=== PATIENT | female | born 1955 | race Two or more races ===

== ENCOUNTER 2016-11-01 22:20 | Emergency (ER) | payer BC, OTHER ==
[2016-11-01 23:02] VITALS: TEMP 98.5; BMI 37.8
--- NOTE | 2016-11-02 00:32 | PDOC ---
History of Present Illness - History of Present Illness Initial Comments: 11/02/16 00:49 The patient is a 61 year old female with a past medical hx of HTN, diabetes, kidney stones who presents to the ED for evaluation of high blood pressure since today. The patient notes she has been more stressed than usual and has not been watching her diet. She reports she can feel when her blood pressure is high and took her pressure at home. She states she feels lightheaded, hot, flushed, nauseous, and short of breath. She also states she had diarrhea and vomiting episodes today, but notes this may be secondary to the food she ate. She reports she has not taken her blood pressure medication in 4 days. The patient denies chest pain, diaphoresis The patient denies fever, chills The patient denies dysuria, frequency Social: No tobacco use reported PCP: Dr. Rodriguez Allergies: Cefuroxime,codeine Surgical: None reported <Tessa Bone - Last Filed: 11/02/16 01:36> <Erica Aiken - Last Filed: 11/02/16 01:46> - General Chief Complaint: Blood Pressure Problem Stated Complaint: HIGH BLOOD PRESSURE Time Seen by Provider: 11/01/16 23:52 Past History <Tessa Bone - Last Filed: 11/02/16 01:36> - Past Medical History Asthma: Yes CVA: Yes (TIA) GI Disorders: Yes (PUD RESOLVED, H PYLORI) Disorders: Yes (KIDNEY STONES) HTN: Yes Kidney Stones: Yes Suicide Attempt (Hx): No Thyroid Disease: No - Immunization History Td Vaccination: Yes Immunization Up to Date: Yes - Psycho/Social/Smoking Cessation Hx Anxiety: No Suicidal Ideation: No Smoking Status: No Smoking History: Never smoked Years of Tobacco Use: 0 Number of Cigarettes Smoked Daily: 0 Cigars Per Day: 0 Hx Alcohol Use: No Drug/Substance Use Hx: No Substance Use Type: None Hx Substance Use Treatment: No <Erica Aiken - Last Filed: 11/02/16 01:46> - Past Medical History Allergies/Adverse Reactions: Allergies Allergy/AdvReac Type Severity Reaction Status Date / Time cefuroxime axetil Allergy Intermediate Nausea Verified 11/01/16 22:44 [From Ceftin] codeine [Codeine] Allergy Intermediate Swelling Verified 11/01/16 22:44 Shellfish Allergy Intermediate Hives Verified 11/01/16 22:44 lactose [Lactose] AdvReac Mild Nausea Verified 11/01/16 22:44 Home Medications: Ambulatory Orders Budesonide/Formeterol Fumarate [SYMBICORT 160/4.5mcg -] 1 inh PO BID PRN Valsartan/Hydrochlorothiazide [Valsartan-Hctz 80-12.5 mg Tab] 1 each PO DAILY Review of Systems - Review of Systems Able to Perform ROS?: Yes Comments:: 11/02/16 00:51 CONSTITUTIONAL: +flushed Absent: chills, diaphoresis, generalized weakness, malaise, loss of appetite HEENT: Absent: rhinorrhea, nasal congestion, throat pain, throat swelling, difficulty swallowing, mouth swelling, ear pain, eye pain, visual Changes CARDIOVASCULAR: Absent: chest pain, syncope, palpitations, irregular heart rate, lightheadedness , peripheral edema RESPIRATORY: +SOB Absent: cough, dyspnea with exertion, orthopnea, wheezing, stridor, hemoptysis GASTROINTESTINAL: +nauseous Absent: abdominal pain, abdominal distension, vomiting, diarrhea, constipation, melena, hematochezia GENITOURINARY: Absent: dysuria, frequency, urgency, hesitancy, hematuria, flank pain, genital pain MUSCULOSKELETAL: Absent: myalgia, arthralgia, joint swelling SKIN: Absent: rash, itching, pallor HEMATOLOGIC/IMMUNOLOGIC: Absent: easy bleeding, easy bruising, lymphadenopathy, frequent infections ENDOCRINE: Absent: unexplained weight gain, unexplained weight loss, heat intolerance, cold intolerance NEUROLOGIC: +lightheaded Absent: headache, focal weakness or paresthesias, dizziness, unsteady gait, seizure, mental status changes, bladder or bowel incontinence PSYCHIATRIC: Absent: anxiety, depression, suicidal or homicidal ideation, hallucinations <Tessa Bone - Last Filed: 11/02/16 01:36> *Physical Exam - Vital Signs Last Vital Signs Temp Pulse Resp BP Pulse Ox 98.5 F 90 18 161/99 97 11/01/16 22:46 11/01/16 22:46 11/01/16 22:46 11/01/16 22:46 11/01/16 22:46 - Physical Exam Comments: 11/02/16 01:00 GENERAL: Well developed, well nourished. Awake and alert. No acute distress. HEENT: Normocephalic, atraumatic. PERRLA, EOMI. No conjunctival pallor. Sclera are non- icteric. Moist mucous membranes. Oropharynx is clear. NECK: Supple. Full ROM. No JVD. Carotid pulses 2+ and symmetric, without bruits. No thyromegaly. No lymphadenopathy. CARDIOVASCULAR: Regular rate and rhythm. No murmurs, rubs, or gallops. Distal pulses are 2+ and symmetric. PULMONARY: No evidence of respiratory distress. Lungs clear to auscultation bilaterally. No wheezing, rales or rhonchi. ABDOMINAL: Soft. Non-tender. Non-distended. No rebound or guarding. No organomegaly. Normoactive bowel sounds. MUSCULOSKELETAL Normal range of motion at all joints. No bony deformities or tenderness. No CVA tenderness. EXTREMITIES: No cyanosis. No clubbing. No edema. No calf tenderness. SKIN: Warm and dry. Normal capillary refill. No rashes. No jaundice. NEUROLOGICAL: Alert, awake, appropriate. Cranial nerves 2-12 intact. No deficits to light touch and temperature in face, upper extremities and lower extremities. No motor deficits in the in face, upper extremities and lower extremities. Normoreflexic in the upper and lower extremities. Normal speech. PSYCHIATRIC: Cooperative. Good eye contact. Appropriate mood and affect. <Tessa Bone - Last Filed: 11/02/16 01:36> - Vital Signs Last Vital Signs Temp Pulse Resp BP Pulse Ox 98.5 F 90 18 161/99 97 11/01/16 22:46 11/01/16 22:46 11/01/16 22:46 11/01/16 22:46 11/01/16 22:46 <Erica Aiken - Last Filed: 11/02/16 01:46> Heart Score/ECG Review - ECG Impressions Comment:: 11/02/16 01:19 EKG performed at 0109. Read and interpreted by Dr. Attila WEISS at a rate of 80 bpm <Tessa Bone - Last Filed: 11/02/16 01:36> Medical Decision Making - Medical Decision Making 11/02/16 01:24 61-year-old female who states that she's not taken her blood pressure medications for 4 days and has had some dietary indiscretion, felt flushed and states this occurs when she her blood pressures elevated. She arrived with a blood pressure of approximately 160/90. she denies any precordial chest pain, shortness of breath, ekg is normal sinus rhythm at 80. No signs of ischemia 11/02/16 01:45 ED blood pressure 157/84 <Erica Aiken - Last Filed: 11/02/16 01:46> *DC/Admit/Observation/Transfer - Attestations Scribe Attestion: 11/02/16 00:49 Documentation prepared by Tessa Bone, acting as medical device sales consultant for Erica Aiken MD/DO. <Tessa Bone - Last Filed: 11/02/16 01:36> <Erica Aiken - Last Filed: 11/02/16 01:46> Diagnosis at time of Disposition: Hypertension Qualifiers: Hypertension type: essential hypertension Qualified Code(s): I10 - Essential ( primary) hypertension - Discharge Dispostion Disposition: HOME Condition at time of disposition: Stable - Referrals Referrals: Ivis Rodriguez MD [Primary Care Provider] - - Patient Instructions Printed Discharge Instructions: DI for High Blood Pressure Additional Instructions: Please take your medications for your blood pressure as prescribed by your physician Return to the emergency department for any worsening symptoms
[2016-11-02] MEDS ORDERED: cloNIDine HCL 0.1 MG TABLET PO ONE (00:59)
[2016-11-02 01:05] VITALS: PULSE 88
[2016-11-02] MEDS ORDERED: cloNIDine HCL 0.1 MG TABLET ONE (01:15)
[2016-11-02 01:45] VITALS: BP 157/84
--- NOTE | 2016-11-02 11:20 | EKG ---
Test Reason : Blood Pressure : / mmHG Vent. Rate : 080 BPM Atrial Rate : 080 BPM P-R Int : 166 ms QRS Dur : 088 ms QT Int : 386 ms P-R-T Axes : 053 -09 044 degrees QTc Int : 445 ms NORMAL SINUS RHYTHM POSSIBLE LEFT ATRIAL ENLARGEMENT BORDERLINE ECG WHEN COMPARED WITH ECG OF 30-SEP-2015 11:45, NO SIGNIFICANT CHANGE WAS FOUND Confirmed by MEGHAN WORTHINGTON MD ([id number]) on 11/02/2016 11:20:28 AM Referred By: Confirmed By:MEGHAN WORTHINGTON MD
== END 2016-11-02 02:03 | disposition home or self-care (01) ==
LOC: JER 22:20
DX: I10 Essential (primary) hypertension (principal); E11.9 Type 2 diabetes mellitus without complications; J45.909 Unspecified asthma, uncomplicated; Z87.442 Personal history of urinary calculi; Z86.73 Personal history of transient ischemic attack (TIA), and cerebral infarction without residual deficits
CPT/HCPCS: 93005; 93010; 99282-25

== ENCOUNTER 2017-02-23 05:56 | Emergency (ER) | payer OTHER ==
[2017-02-23 06:16] VITALS: BP 148/74; PULSE 89; TEMP 97.1; BMI 36.0
--- NOTE | 2017-02-23 06:45 | PDOC ---
History of Present Illness - General History Source: Patient <Ac Moss - Last Filed: 02/23/17 06:43> - General History Source: Patient Exam Limitations: No Limitations - History of Present Illness Initial Comments: 02/23/17 06:48 The patient is a 62 year old female with significant past medical history of hypertension, asthma and kidney stones who presents to the ED for 1 day of headache x2. Patient reports she was awoken at 2am from her headache. She describes her headache as a pounding sensation, 8/10 and localized to the back of the head and front. She reports associated nausea, but no vomiting. Denies any vision changes, paresthesias, or dizziness. The patient denies fever, chills, cough, SOB, chest pain, palpitations, abdominal pain, and diarrhea. Allergies: cefuroxime axetil, codeine, lactose Social History: No alcohol, tobacco, or drug use reported. Past Surgical History: None reported PCP: Dr. Ivis Rodriguez <Hemalatha Navarro - Last Filed: 02/23/17 06:49> - General Chief Complaint: Blood Pressure Problem Stated Complaint: BLOOD PRESSURE PROBLEM Time Seen by Provider: 02/23/17 06:43 Past History - Past Medical History Asthma: Yes CVA: Yes (TIA) GI Disorders: Yes (PUD RESOLVED, H PYLORI) Disorders: Yes (KIDNEY STONES) HTN: Yes Kidney Stones: Yes Suicide Attempt (Hx): No Thyroid Disease: No - Immunization History Td Vaccination: Yes Immunization Up to Date: Yes - Psycho/Social/Smoking Cessation Hx Anxiety: No Suicidal Ideation: No Smoking Status: No Smoking History: Never smoked Years of Tobacco Use: 0 Have you smoked in the past 12 months: No Number of Cigarettes Smoked Daily: 0 Cigars Per Day: 0 Information on smoking cessation initiated: No Hx Alcohol Use: No Drug/Substance Use Hx: No Substance Use Type: None Hx Substance Use Treatment: No <Ac Moss - Last Filed: 02/23/17 06:43> <Hemalatha Navarro - Last Filed: 02/23/17 06:49> - Past Medical History Allergies/Adverse Reactions: Allergies Allergy/AdvReac Type Severity Reaction Status Date / Time cefuroxime axetil Allergy Intermediate Nausea Verified 02/23/17 06:09 [From Ceftin] codeine [Codeine] Allergy Intermediate Swelling Verified 02/23/17 06:09 Shellfish Allergy Intermediate Hives Verified 02/23/17 06:09 lactose [Lactose] AdvReac Mild Nausea Verified 02/23/17 06:09 Home Medications: Ambulatory Orders Budesonide/Formeterol Fumarate [SYMBICORT 160/4.5mcg -] 1 inh PO BID PRN Valsartan/Hydrochlorothiazide [Valsartan-Hctz 80-12.5 mg Tab] 1 each PO DAILY Review of Systems - Review of Systems Able to Perform ROS?: Yes Comments:: 02/23/17 06:48 CONSTITUTIONAL: Absent: fever, no chills, no fatigue EYES: Absent: visual changes ENT: Absent: ear pain, no sore throat CARDIOVASCULAR: Absent: chest pain, no palpitations RESPIRATORY: Absent: cough, no SOB GI: +nausea Absent: abdominal pain, no vomiting, no constipation, no diarrhea GENITOURINARY: Absent: dysuria, no frequency, no hematuria MUSCULOSKELETAL: Absent: back pain, no arthralgia, no myalgia SKIN: Absent: rash NEURO: +headache <Hemalatha Navarro - Last Filed: 02/23/17 06:49> *Physical Exam - Vital Signs Last Vital Signs Temp Pulse Resp BP Pulse Ox 97.1 F L 89 20 148/74 99 02/23/17 06:09 02/23/17 06:09 02/23/17 06:09 02/23/17 06:09 02/23/17 06:09 <Ac Moss - Last Filed: 02/23/17 06:43> - Vital Signs Last Vital Signs Temp Pulse Resp BP Pulse Ox 97.1 F L 89 20 148/74 99 02/23/17 06:09 02/23/17 06:09 02/23/17 06:09 02/23/17 06:09 02/23/17 06:09 - Physical Exam Comments: 02/23/17 06:48 GENERAL: Well-appearing, well-nourished. No apparent distress. HEENT: Normocephalic, atraumatic. PERRL, EOM intact. CARDIOVASCULAR: Normal S1, S2. Regular rate and rhythm. PULMONARY: Clear to auscultation bilaterally. ABDOMEN: Soft, non-distended, non-tender. EXTREMITIES: Normal ROM in all four extremities. No gross deformities. SKIN: Warm, dry. No rash NEUROLOGICAL: No focal neurological deficits. <Hemalatha Navarro - Last Filed: 02/23/17 06:49> Medical Decision Making - Medical Decision Making 02/23/17 06:44 Dr. Moss: The scribe's documentation has been prepared under my direction and personally reviewed by me in its entirery. I confirm that the note above accurately reflects all work, treatment, procedures, and medical decision making performed by me. <Ac Moss - Last Filed: 02/23/17 06:43> *DC/Admit/Observation/Transfer - Discharge Dispostion Admit: No <Ac Moss - Last Filed: 02/23/17 06:43> - Attestations Scribe Attestion: 02/23/17 06:49 Documentation prepared by Hemalatha Navarro, acting as ophthalmic medical technologist for Ac Moss MD <Hemalatha Navarro - Last Filed: 02/23/17 06:49> Diagnosis at time of Disposition: Hypertension Qualifiers: Hypertension type: essential hypertension Qualified Code(s): I10 - Essential ( primary) hypertension Headache Qualifiers: Headache type: unspecified Headache chronicity pattern: unspecified pattern Intractability: not intractable Qualified Code(s): R51 - Headache - Discharge Dispostion Disposition: HOME Condition at time of disposition: Stable - Referrals Referrals: Ivis Rodriguez MD [Primary Care Provider] - - Patient Instructions Printed Discharge Instructions: DI for High Blood Pressure, DI for Headache
[2017-02-23] MEDS ORDERED: IBUPROFEN 400 MG TABLET (FP) PO ONE ×2 (06:47→06:50)
[2017-02-23] MEDS ORDERED: AMOX TR/POT CLAV 875MG/125MG TABLETS (FP) PO STA (06:53)
== END 2017-02-23 07:02 | disposition home or self-care (01) ==
LOC: JER 05:56
DX: I10 Essential (primary) hypertension (principal); J45.909 Unspecified asthma, uncomplicated; Z86.73 Personal history of transient ischemic attack (TIA), and cerebral infarction without residual deficits; Z87.442 Personal history of urinary calculi
CPT/HCPCS: 99281-25

== ENCOUNTER 2017-04-02 20:55 | Emergency (ER) | payer OTHER ==
[2017-04-02 21:22] VITALS: BP 130/60; PULSE 80; TEMP 97.9; BMI 36.0
[2017-04-02] MEDS ORDERED: predniSONE 20 MG TABLET (UD) PO ONE (21:52)
[2017-04-02] MEDS ORDERED: predniSONE 20 MG TABLET (UD) ONE (21:55)
--- NOTE | 2017-04-02 21:55 | PDOC ---
History of Present Illness - General Chief Complaint: Bite Stated Complaint: LT LEG BITE Time Seen by Provider: 04/02/17 21:39 History Source: Patient Exam Limitations: No Limitations - History of Present Illness Initial Comments: 04/02/17 21:57 62 yr female with insect bites to left thigh noticed this am. Pt unsure what is the cause, possible insect bites in the sleep. no fever, no trouble breathing , no resp distress. Pt has multiple food allergies. Pt took 25mg benadryl at 6pm. Severity: Yes: mild Location: reports: extremities (left thigh ) Past History - Past Medical History Allergies/Adverse Reactions: Allergies Allergy/AdvReac Type Severity Reaction Status Date / Time cefuroxime axetil Allergy Intermediate Nausea Verified 04/02/17 21:18 [From Ceftin] codeine [Codeine] Allergy Intermediate Swelling Verified 04/02/17 21:18 Shellfish Allergy Intermediate Hives Verified 04/02/17 21:18 lactose [Lactose] AdvReac Mild Nausea Verified 04/02/17 21:18 Home Medications: Ambulatory Orders Budesonide/Formeterol Fumarate [SYMBICORT 160/4.5mcg -] 1 inh PO BID PRN Valsartan/Hydrochlorothiazide [Valsartan-Hctz 80-12.5 mg Tab] 1 each PO DAILY Amox-Tr/K Cl [Augmentin 875Mg Tablet] 1 tab PO BID #20 tablet 02/23/17 Prednisone 10 mg PO BID #6 tablet 04/02/17 Asthma: Yes CVA: Yes (TIA) GI Disorders: Yes (PUD RESOLVED, H PYLORI) Disorders: Yes (KIDNEY STONES) HTN: Yes Kidney Stones: Yes Suicide Attempt (Hx): No Thyroid Disease: No - Immunization History Td Vaccination: Yes Immunization Up to Date: Yes - Psycho/Social/Smoking Cessation Hx Anxiety: No Suicidal Ideation: No Smoking Status: No Smoking History: Never smoked Years of Tobacco Use: 0 Have you smoked in the past 12 months: No Number of Cigarettes Smoked Daily: 0 Cigars Per Day: 0 Information on smoking cessation initiated: No Hx Alcohol Use: No Drug/Substance Use Hx: No Substance Use Type: None Hx Substance Use Treatment: No Review of Systems - Review of Systems Able to Perform ROS?: Yes Is the patient limited Czech proficient: No Constitutional: No: Symptoms Reported HEENTM: No: Symptoms Reported Respiratory: No: Symptoms reported Cardiac (ROS): No: Symptoms Reported ABD/GI: No: Symptoms Reported : No: Symptoms Reported Musculoskeletal: No: Symptoms Reported Integumentary: Yes: Symptoms Reported *Physical Exam - Vital Signs Last Vital Signs Temp Pulse Resp BP Pulse Ox 97.9 F 80 19 130/60 97 04/02/17 21:19 04/02/17 21:19 04/02/17 21:19 04/02/17 21:04/02/17 21:19 - Physical Exam General Appearance: Yes: Nourished, Appropriately Dressed HEENT: positive: EOMI, RICARDO, Normal ENT Inspection, TMs Normal, Pharynx Normal Neck: positive: Supple. negative: Tender Respiratory/Chest: positive: Lungs Clear, Normal Breath Sounds. negative: Chest Tender, Wheezing Cardiovascular: positive: Regular Rhythm, Regular Rate Gastrointestinal/Abdominal: positive: Normal Bowel Sounds, Soft Musculoskeletal: positive: Normal Inspection Extremity: positive: Normal Capillary Refill, Normal Inspection, Normal Range of Motion Integumentary: positive: Other (left inner thigh and outer thigh with scattered maculopaular red raised bites) Neurologic: positive: Fully Oriented, Alert, Normal Mood/Affect, Normal Response , Motor Strength 5/5 Medical Decision Making - Medical Decision Making 04/02/17 22:02 cc: insect bites, erythematous, itchy to left inner and outer thigh no hives no resp distress or difficulty breathing will give prednisone cool compresses , cool baths continue beandryl topical hydrocortisone pt and agree with plan of care all questions asked and answered at discharge, pt stable *DC/Admit/Observation/Transfer Diagnosis at time of Disposition: Insect bites Qualifiers: Encounter type: initial encounter Qualified Code(s): W57.XXXA - Bitten or stung by nonvenomous insect and other nonvenomous arthropods, initial encounter - Discharge Dispostion Disposition: HOME Condition at time of disposition: Good - Prescriptions Prescriptions: Prednisone 10 mg PO BID #6 tablet - Referrals Referrals: Danny Ríos MD [Primary Care Provider] - - Patient Instructions Printed Discharge Instructions: DI for Insect Bites and Stings Additional Instructions: cool compresses apply hydrocortisone cream three times a day take benadryl 50mg every 6-8hrs for itching take prednisone twice a day for the next 4 days follow with your doctor if any worsening symptoms return to ER for any worsening symptoms
== END 2017-04-02 22:01 | disposition home or self-care (01) ==
LOC: JERFT 20:55
DX: S70.362A Insect bite (nonvenomous), left thigh, initial encounter (principal); W57.XXXA Bitten or stung by nonvenomous insect and other nonvenomous arthropods, initial encounter; Y93.89 Activity, other specified; Y92.038 Other place in apartment as the place of occurrence of the external cause; I10 Essential (primary) hypertension; Z86.73 Personal history of transient ischemic attack (TIA), and cerebral infarction without residual deficits
CPT/HCPCS: 99281-25

== ENCOUNTER 2017-06-18 18:58 | Emergency (ER) | payer OTHER ==
[2017-06-18 19:12] VITALS: PULSE 86; BMI 36.3
--- NOTE | 2017-06-18 19:51 | PDOC ---
History of Present Illness - General Chief Complaint: Rectal Bleed Stated Complaint: ABDOMINAL PAIN Time Seen by Provider: 06/18/17 19:49 History Source: Patient - History of Present Illness Initial Comments: 06/18/17 20:07 CC: Diarrhea, abdominal pain and bright red bleeding associated with bowel movements Patient is a 62 y.o. female with a PMH of HTN and Diverticulitis who presents to our facility today c/o L sided searing abdominal 10/10 pain immediately prior to having a bowel movement (pain is resolved with bowel movement). Patient notes she has had 10 bowel movements today, all watery and she notes bright red blood on the tissue paper. Patient notes some associated nausea but no vomiting. Patient denies any associated chest pain or shortness of breath. Patient took Tylenol to no relief and contacted her PCP, Dr. Ríos who recommended she present to the ED for evaluation. Allergies: Cefuroxime, Codeine, shellfish PMD: Dr. Ríos Past History - Past Medical History Allergies/Adverse Reactions: Allergies Allergy/AdvReac Type Severity Reaction Status Date / Time cefuroxime axetil Allergy Intermediate Nausea Verified 06/18/17 19:04 [From Ceftin] codeine [Codeine] Allergy Intermediate Swelling Verified 06/18/17 19:04 Shellfish Allergy Intermediate Hives Verified 06/18/17 19:04 lactose [Lactose] AdvReac Mild Nausea Verified 06/18/17 19:04 Home Medications: Ambulatory Orders Budesonide/Formeterol Fumarate [SYMBICORT 160/4.5mcg -] 1 inh PO BID PRN Valsartan/Hydrochlorothiazide [Valsartan-Hctz 80-12.5 mg Tab] 1 each PO DAILY Prednisone 10 mg PO PRN 06/18/17 Metronidazole 500 mg PO Q8H #21 tablet 06/19/17 Sulfamethoxazole/Trimethoprim [Bactrim Ds -] 1 tab PO BID #14 tablet 06/19/17 Asthma: Yes CVA: Yes (TIA) GI Disorders: Yes (PUD RESOLVED, H PYLORI) Disorders: Yes (KIDNEY STONES) HTN: Yes Kidney Stones: Yes Suicide Attempt (Hx): No Thyroid Disease: No - Immunization History Td Vaccination: Yes Immunization Up to Date: Yes - Psycho/Social/Smoking Cessation Hx Anxiety: No Suicidal Ideation: No Smoking Status: No Smoking History: Never smoked Years of Tobacco Use: 0 Have you smoked in the past 12 months: No Number of Cigarettes Smoked Daily: 0 Cigars Per Day: 0 Information on smoking cessation initiated: No Hx Alcohol Use: No Drug/Substance Use Hx: No Substance Use Type: None Hx Substance Use Treatment: No Review of Systems - Review of Systems Constitutional: No: Chills, Diaphoresis, Fever, Unexplained wgt Loss HEENTM: No: Blurred Vision, Double Vision, Hearing Loss, Throat Pain Respiratory: No: Cough, Orthopnea, Stridor, Wheezing Cardiac (ROS): No: Chest Pain, Edema, Lightheadedness, Palpitations ABD/GI: Yes: Abd. Pain w/ defecation, Blood Streaked Bowels, Diarrhea. No: Vomiting : No: Burning, Dysuria All Other Systems: Reviewed and Negative *Physical Exam - Vital Signs Last Vital Signs Temp Pulse Resp BP Pulse Ox 98.5 F 86 18 147/95 100 06/18/17 19:05 06/18/17 19:05 06/18/17 19:05 06/18/17 19:05 06/18/17 19:05 - Physical Exam General Appearance: Yes: Nourished, Appropriately Dressed Neck: positive: Normal Thyroid, Supple Respiratory/Chest: positive: Lungs Clear, Normal Breath Sounds Cardiovascular: positive: Regular Rhythm, Regular Rate, S1, S2 Gastrointestinal/Abdominal: positive: Tender, Increased Bowel Sounds Extremity: positive: Normal Capillary Refill, Normal Inspection Integumentary: positive: Normal Color, Dry, Warm Neurologic: positive: batt packer II-XII NML intact, Fully Oriented, Alert ED Treatment Course - LABORATORY CBC & Chemistry Diagram: 06/18/17 21:09 06/18/17 21:09 Medical Decision Making - Medical Decision Making 06/18/17 20:12 Patient is a 62 y.o. female who presents with bright red rectal bleed and abdominal pain following bowel movement. Initial differential diagnosis is for Diverticulitis vs. Hemorrhoids vs. GI Bleed 1. CBC, BMP 2. Fecal Occult blood test 3. Abdominal CT Scan 06/19/17 03:39 FOBT negative; Abdominal CT shows scattered diverticula in the L colon and notes no obstruction, colitis, free fluid or free air. Patient discharged with 7 day antibiotic course of Bactrim + Metronizadole *DC/Admit/Observation/Transfer Diagnosis at time of Disposition: Diverticulitis - Discharge Dispostion Disposition: HOME Condition at time of disposition: Good - Prescriptions Prescriptions: Sulfamethoxazole/Trimethoprim [Bactrim Ds -] 1 tab PO BID #14 tablet Metronidazole 500 mg PO Q8H #21 tablet - Referrals Referrals: Ivis Rodriguez MD [Primary Care Provider] - - Patient Instructions Printed Discharge Instructions: DI for Rectal Bleeding Additional Instructions: Please return to the Emergency Department should you experience severe bleeding , severe abdominal pain or chest pain/shortness of breath. Please follow up with your PCP within 3-5 days. - Attestations Physician Attestion: 06/19/17 01:09 I, Dr. Courtney Galindo, attest that this document has been prepared under my direction and personally reviewed by me in its entirety. I further attest, that it accurately reflects all work, treatment, procedures and medical decision -making performed by me.
[2017-06-18] MEDS ORDERED: ACETAMINOPHEN 500 MG TABLET (FP) PO ONE (20:24)
--- NOTE | 2017-06-18 20:36 | PDOC ---
Attending Attestation - Resident Resident Name: Courtney Galindo - ED Attending Attestation I have performed the following: I have examined & evaluated the patient, The case was reviewed & discussed with the resident, I agree w/resident's findings & plan, Exceptions are as noted - HPI HPI: 06/18/17 20:33 62 F with h/o HTN, diverticulitis presenting with L sided abdominal pain, diarrhea, and BRBPR. Pt states that the pain began today. It is constant, non- radiating. Pt reports several episodes of watery brown diarrhea this morning with some red streaks. She denies any dark tarry stools. Denies N/V. Denies F/ C. Pt states that the pain is similar to her previous episode of diverticulitis. No dysuria, no flank pain. - Physicial Exam PE: 06/18/17 20:49 "GENERAL: Awake, alert, and fully oriented, in no acute distress HEAD: No signs of trauma EYES: PERRLA, EOMI, sclera anicteric, conjunctiva clear ENT: Auricles normal inspection, hearing grossly normal, nares patent, oropharynx clear without exudates. Moist mucosa NECK: Normal ROM, supple, no lymphadenopathy, JVD, or masses LUNGS: Breath sounds equal, clear to auscultation bilaterally. No wheezes, and no crackles HEART: Regular rate and rhythm, normal S1 and S2, no murmurs, rubs or gallops ABDOMEN: Soft, LLQ tenderness to palpation, normoactive bowel sounds. No guarding, no rebound. No masses EXTREMITIES: Normal range of motion, no edema. No clubbing or cyanosis. No cords, erythema, or tenderness NEUROLOGICAL: Cranial nerves II through XII grossly intact. Normal speech, normal gait SKIN: Warm, Dry, normal turgor, no rashes or lesions noted. " - Medical Decision Making 06/18/17 20:51 62 F with h/o HTN, diverticulitis presenting with 1 day of LLQ pain. Concerning for diverticulitis vs colitis. Also consider renal colic, though less likely. Ovarian torsion less likely as pt is not of reproductive age, no h/o ovarian masses. - Labs, UA - CTAP 06/19/17 01:14 CT shows possible early diverticulitis. - DC home with abx - f/u PMD
[2017-06-18] MEDS ORDERED: ACETAMINOPHEN 325 MG TABLET (FP) ONE (20:59)
[2017-06-18 21:16] LABS: MCH 31.2 pg (25.7-33.7); MCHC 34.6 g/dl (32.0-36.0); MEAN CELL VOLUME 90.4 fl (80-96); MEAN PLT VOLUME 7.9 fl (7.5-11.1); PLATELET COUNT 271 K/MM3 (134-434); RDW 13.2 % (11.6-15.6); WHITE BLOOD COUNT 7.8 K/mm3 (4.0-10.0)
[2017-06-18 21:27] LABS: INR 1.05 (0.82-1.09); PROTHROMBIN TIME (PATIENT) 11.6 SEC (9.98-11.88)
[2017-06-18 21:29] LABS: ACTIVATED PTT 31.1 SECONDS (26.9-34.4)
[2017-06-18 21:35] LABS: URINE APPEARANCE CLEAR; URINE BILIRUBIN NEGATIVE (NEGATIVE); URINE BLOOD 1+ (NEGATIVE); URINE COLOR STRAW; URINE GLUCOSE (UA) NEGATIVE (NEGATIVE); URINE KETONE NEGATIVE (NEGATIVE); URINE LEUK ESTERASE NEGATIVE (NEGATIVE); URINE NITRITE NEGATIVE (NEGATIVE); URINE PROTEIN NEGATIVE (NEGATIVE); URINE UROBILINOGEN NEGATIVE mg/dL (0.2-1.0)
[2017-06-18 21:46] LABS: URINE WBC 1 /hpf (3-5)
[2017-06-18 21:47] LABS: ANION GAP 7 (8-16); CALCIUM 9.5 mg/dL (8.5-10.1); CO2 29 mmol/L (21-32); CREATININE 0.8 mg/dL (0.55-1.02); GLUCOSE,RANDOM 100 mg/dL (74-106)
[2017-06-18] MEDS ORDERED: ACETAMINOPHEN 325 MG TABLET (FP) PO ONE (22:03)
[2017-06-19] MEDS ORDERED: CIPROFLOXACIN 500 MG TABLET (RESTRICTED TO ID) PO ONE (01:05)
[2017-06-19] MEDS ORDERED: metroNIDAZOLE 250 MG TABLET PO ONE (01:05)
[2017-06-19] MEDS ORDERED: metroNIDAZOLE 250 MG TABLET ONE (01:10)
[2017-06-19] MEDS ORDERED: SULFAMETHOXAZOLE/TRIMETHOPRIM 800MG/160MG D.S. TABLET PO ONE (01:11)
[2017-06-19] MEDS ORDERED: SULFAMETHOXAZOLE/TRIMETHOPRIM 800MG/160MG D.S. TABLET ONE (01:17)
[2017-06-19 01:25] VITALS: BP 141/89; TEMP 98.2
== END 2017-06-19 01:23 | disposition home or self-care (01) ==
LOC: JER 18:58
DX: K57.32 Diverticulitis of large intestine without perforation or abscess without bleeding (principal); I10 Essential (primary) hypertension; Z86.73 Personal history of transient ischemic attack (TIA), and cerebral infarction without residual deficits; Z87.442 Personal history of urinary calculi
CPT/HCPCS: 36415; 74176-TC; 80048; 81003; 81015; 82272; 85027; 85610; 85730; 86850; 86900; 86901; 99283-25

== ENCOUNTER 2018-04-04 08:54 | Day surgery (SDC) | payer OTHER ==
[2018-04-03 15:09] VITALS: BMI 37.8
[2018-04-04] MEDS ORDERED: LIDOCAINE HCL 2% (20ML MULTI-DOSE VIAL) NR ONE ×2 (10:01→11:53)
[2018-04-04] MEDS ORDERED: MIDAZOLAM HCL 2 MG/2 ML SINGLE DOSE VIAL ONE (10:44)
[2018-04-04 13:18] VITALS: BP 140/80; PULSE 85; TEMP 97.9
--- NOTE | 2018-04-05 17:06 | OP ---
DATE OF OPERATION: 04/04/2018 PREOPERATIVE DIAGNOSIS: Left ring finger mass. POSTOPERATIVE DIAGNOSIS: Left ring finger mass. OPERATIVE PROCEDURE: Left ring finger mass excision. SURGEON: Quentin Greer MD ANESTHESIA: Local. COMPLICATIONS: None. ESTIMATED BLOOD LOSS: Minimal. INDICATION FOR PROCEDURE: The patient is a 63-year-old female with the above finding, indicated for operative treatment. Risks, benefits, and alternatives were discussed with the patient at length. Proper informed consent was obtained. PROCEDURE: After proper identification of the patient and the correct operative site, the patient was brought to the operating room and placed supine on the operating room table. Prominences were well padded. Local anesthesia was given with 2% lidocaine. The left upper extremity was prepped and draped in the usual sterile fashion. A well-padded tourniquet was placed as well as a sterile prep. Finger tourniquet was ultimately used rather than the main tourniquet. Mass was identified on the dorsal aspect of the middle phalangeal segment. Curvilinear incision was made over this. Blunt and sharp dissection was performed to the subcutaneous tissues. 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 Wound was irrigated with saline and repaired with a 5-0 nylon suture. Sterile dressings were applied. Patient was reversed from anesthesia and brought to the Recovery in stable condition. She tolerated the procedure well. QUENTIN GREER M.D. ALEX/[id number]
--- NOTE | 2018-04-05 18:03 | PATH ---
Surgical Pathology Report Patient Name: CARLOS SHIN [facility]. Rec. #: [id number] /Age/Gender: 1955 (Age: 63) / F Account: [id number] Location: [facility] Taken: 04/04/2018 Received: 04/04/2018 Reported: 04/05/2018 Physicians: Quentin Perry M.D. Specimen(s) Received LEFT RING FINGER MASS Clinical History Left ring finger mass Final Diagnosis FINGER, RING, LEFT, MASS, EXCISION: HEMANGIOMA. Electronically Signed Rosalee Romero M.D. Gross Description Received in formalin, labeled "left ring finger mass" is a red-ramos hemorrhagic lobulated soft tissue measuring 1.3 x 0.7 x 0.5 cm in in greatest dimension. The outer surface is inked in blue. The specimen is bisected and entirely submitted in toto in one cassette. SHEFALI/04/04/2018 jennifer/04/04/2018
== END 2018-04-04 13:16 | disposition home or self-care (01) ==
LOC: FASU 08:54
PROVIDERS: ATTEND Orthopaedic Surgery Hand Surgery
PROC: 0JBK0ZZ Excision of Left Hand Subcutaneous Tissue and Fascia, Open Approach (ICD-10-PCS; principal; 2018-04-04 11:52)
DX: D18.09 Hemangioma of other sites (principal)
CPT/HCPCS: 88305-TC

== ENCOUNTER 2019-06-20 10:10 | Emergency (ER) | payer OTHER ==
[2019-06-20 10:19] VITALS: BP 130/91; PULSE 79; TEMP 98.2; BMI 36.8
[2019-06-20] MEDS ORDERED: KETOROLAC TROMETHAMINE 60 MG/2 ML VIAL IM ONE (10:39)
[2019-06-20] MEDS ORDERED: KETOROLAC TROMETHAMINE 60 MG/2 ML VIAL ONE (10:45)
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
[2019-06-20 11:09] LABS: EPI CELLS 5.8 /HPF (0-5/HPF); HYALINE CASTS 10 /lpf (0-8); URINE APPEARANCE CLOUDY; URINE BACTERIA 70.3 /hpf (NEGATIVE); URINE BILIRUBIN NEGATIVE (NEGATIVE); URINE COLOR YELLOW; URINE GLUCOSE (UA) NEGATIVE (NEGATIVE); URINE KETONE NEGATIVE (NEGATIVE); URINE LEUK ESTERASE 1+ (NEGATIVE); URINE NITRITE NEGATIVE (NEGATIVE); URINE PROTEIN NEGATIVE (NEGATIVE); URINE RBC 1 /hpf (0-4); URINE UROBILINOGEN 0.2 mg/dL (0.2-1.0); URINE WBC 10 /hpf (0-5)
== END 2019-06-20 11:25 | disposition home or self-care (01) ==
LOC: JERFT 10:10
PROC: 3E0233Z Introduction of Anti-inflammatory into Muscle, Percutaneous Approach (ICD-10-PCS; principal; 2019-06-20)
DX: M54.5 Low back pain (principal); G89.29 Other chronic pain; I10 Essential (primary) hypertension; E78.00 Pure hypercholesterolemia, unspecified; J45.909 Unspecified asthma, uncomplicated; Z86.73 Personal history of transient ischemic attack (TIA), and cerebral infarction without residual deficits; Z87.442 Personal history of urinary calculi; Z91.013 Allergy to seafood; Z88.5 Allergy status to narcotic agent; Z79.84 Long term (current) use of oral hypoglycemic drugs
CPT/HCPCS: 81003; 87086; 99282-25

== ENCOUNTER 2021-02-05 20:33 | Emergency (ER) | payer OTHER ==
[2021-02-05 20:46] VITALS: BP 157/82; PULSE 85; TEMP 98; BMI 37.8
== END 2021-02-05 22:24 | disposition home or self-care (01) ==
LOC: JER 20:33
DX: S50.362A Insect bite (nonvenomous) of left elbow, initial encounter (principal)
CPT/HCPCS: 99283-25

== ENCOUNTER 2023-03-12 15:07 | Emergency (ER) | payer OTHER ==
[2023-03-12 15:19] VITALS: RESP 22; BMI 37.8
[2023-03-12] MEDS ORDERED: SODIUM CHLORIDE 0.9% 500 ML INFUS.BAG IV ONE (15:37)
[2023-03-12 16:41] LABS: BASO % 0.5 % (0-2.0); EOS % 3.2 % (0-4.5); HEMATOCRIT 42.4 % (32.4-45.2); HEMOGLOBIN 15.1 GM/dL (10.7-15.3); LYMPH % 24.9 % (8-40); MCHC 35.7 g/dl (32.0-36.0); MEAN CELL VOLUME 89.7 fl (80-96); MEAN PLT VOLUME 7.9 fl (7.5-11.1); MONO % 7.5 % (3.8-10.2); NEUT % 63.9 % (42.8-82.8); PLATELET COUNT 247 10^3/uL (134-434); RBC 4.73 M/mm3 (3.60-5.2); RDW 13.1 % (11.6-15.6); WHITE BLOOD COUNT 6.5 K/mm3 (4.0-10.0)
[2023-03-12 16:47] LABS: INR 1.06 (0.83-1.09); PROTHROMBIN TIME (PATIENT) 12.3 SEC (9.7-13.0)
[2023-03-12 16:50] LABS: ACTIVATED PTT 30.8 SECONDS (25.2-36.5)
[2023-03-12 17:04] LABS: POTASSIUM 4.1 mmol/L (3.5-5.1)
[2023-03-12 17:07] LABS: BLOOD UREA NITROGEN 20.3 mg/dL (7-18); CALCIUM 9.4 mg/dL (8.5-10.1)
[2023-03-12 17:10] LABS: CREATININE 0.7 mg/dL (0.55-1.3)
[2023-03-12 17:12] LABS: BILIRUBIN,TOTAL 0.5 mg/dL (0.2-1); TOT PROT 7.3 g/dl (6.4-8.2)
[2023-03-12 17:24] VITALS: BP 145/74; PULSE 87; TEMP 97.8
== END 2023-03-12 17:43 | disposition home or self-care (01) ==
LOC: JER 15:07
DX: H53.8 Other visual disturbances (principal); Z20.822 Contact with and (suspected) exposure to COVID-19
CPT/HCPCS: 0241U-QW; 36415; 70450-TC; 80053; 82550; 82962; 83735; 84484; 85025; 85610; 85730; 93005; 93010; 99285-25

== ENCOUNTER 2023-08-23 05:28 | Emergency (ER) | payer OTHER ==
[2023-08-23 05:52] VITALS: BMI 37.8
[2023-08-23 07:03] LABS: THROAT:GRP A STREP NOT DETECTED (NOTDETECTED)
[2023-08-23 08:49] VITALS: BP 132/88; PULSE 67; RESP 16; TEMP 98.2
== END 2023-08-23 09:59 | disposition home or self-care (01) ==
LOC: JER 05:28
DX: R09.81 Nasal congestion (principal); R09.89 Other specified symptoms and signs involving the circulatory and respiratory systems; J02.9 Acute pharyngitis, unspecified; H92.03 Otalgia, bilateral; R05.9 Cough, unspecified; R50.9 Fever, unspecified; B97.4 Respiratory syncytial virus as the cause of diseases classified elsewhere; Z20.822 Contact with and (suspected) exposure to COVID-19
CPT/HCPCS: 0241U-QW; 87651; 99283-25

== ENCOUNTER 2024-02-05 09:24 | Emergency (ER) | payer OTHER ==
[2024-02-05 10:10] VITALS: BP 153/61; PULSE 84; RESP 16; TEMP 98; BMI 38.9
[2024-02-05] MEDS ORDERED: ACETAMINOPHEN 325 MG TABLET (FP) ONE (10:44)
[2024-02-05] MEDS ORDERED: ASPIRIN 81 MG CHEWABLE TABLETS ONE (10:44)
[2024-02-05] MEDS: ASPIRIN 81 MG CHEWABLE TABLETS PO ONE (10:51)
[2024-02-05] MEDS: ACETAMINOPHEN 325 MG TABLET (FP) PO ONE (10:51)
== END 2024-02-05 11:51 | disposition home or self-care (01) ==
LOC: JER 09:24
DX: R51.9 Headache, unspecified (principal); I10 Essential (primary) hypertension
CPT/HCPCS: 93005; 93010; 99283-25

== ENCOUNTER 2024-02-26 17:11 | Emergency (ER) | payer OTHER ==
[2024-02-26 17:24] VITALS: BP 170/84; PULSE 90; RESP 16; TEMP 98.2; BMI 37.8
[2024-02-26] MEDS ORDERED: METHOCARBAMOL 500 MG TABLET ONE (17:36)
[2024-02-26] MEDS: METHOCARBAMOL 500 MG TABLET PO ONE (17:37)
== END 2024-02-26 18:38 | disposition home or self-care (01) ==
LOC: FER 17:11
DX: M54.50 Low back pain, unspecified (principal); G89.29 Other chronic pain; X50.1XXA Overexertion from prolonged static or awkward postures, initial encounter
CPT/HCPCS: 72100-TC-FY; 99283-25

== ENCOUNTER 2024-07-31 08:10 | Emergency (ER) | payer OTHER ==
[2024-07-31 08:22] VITALS: BMI 38.9
[2024-07-31 10:23] LABS: PH,URINE 6.5 (5.0-8.0); URINE APPEARANCE CLEAR; URINE BILIRUBIN NEGATIVE (NEGATIVE); URINE COLOR YELLOW; URINE GLUCOSE (UA) NEGATIVE (NEGATIVE); URINE KETONE NEGATIVE (NEGATIVE); URINE LEUK ESTERASE NEGATIVE (NEGATIVE); URINE NITRITE NEGATIVE (NEGATIVE); URINE PROTEIN NEGATIVE (NEGATIVE); URINE UROBILINOGEN 0.2 mg/dL (0.2-1.0)
[2024-07-31] MEDS ORDERED: ASPIRIN 81 MG CHEWABLE TABLETS ONE ×2 (12:26→12:56)
[2024-07-31 12:55] VITALS: TEMP 98.1
[2024-07-31 13:02] LABS: BASO % 0.9 % (0-2.0); HEMATOCRIT 46.3 % (32.4-45.2); HEMOGLOBIN 15.8 GM/dL (10.7-15.3); LYMPH % 22.7 % (8-40); MCH 30.9 pg (25.7-33.7); MCHC 34.2 g/dl (32.0-36.0); MEAN CELL VOLUME 90.3 fl (80-96); MEAN PLT VOLUME 7.3 fl (7.5-11.1); MONO % 4.4 % (3.8-10.2); PLATELET COUNT 247 10^3/uL (134-434); RBC 5.13 M/mm3 (3.60-5.2); RDW 13.1 % (11.6-15.6); WHITE BLOOD COUNT 7.5 K/mm3 (4.0-10.0)
[2024-07-31 13:26] LABS: BLOOD UREA NITROGEN 17.7 mg/dL (7-18); CALCIUM 9.7 mg/dL (8.5-10.1)
[2024-07-31 13:30] LABS: CREATININE 0.7 mg/dL (0.55-1.3)
[2024-07-31] MEDS: ASPIRIN 81 MG CHEWABLE TABLETS PO ONE (13:30)
[2024-07-31 13:31] LABS: BILIRUBIN,TOTAL 0.6 mg/dL (0.2-1); TOT PROT 7.4 g/dl (6.4-8.2)
[2024-07-31 13:56] VITALS: BP 116/71; PULSE 73; RESP 14
[2024-08-01] MEDS ORDERED: ASPIRIN 81 MG CHEWABLE TABLETS PO SCH (10:00)
== END 2024-07-31 13:56 | disposition home or self-care (01) ==
LOC: JER 08:10
DX: H53.8 Other visual disturbances (principal)
CPT/HCPCS: 36415; 70450-TC; 80053; 81003; 85025; 87086; 93005; 93010; 93880-TC; 99285-25

== ENCOUNTER 2025-06-11 17:34 | Emergency (ER) | payer OTHER ==
[2025-06-11 18:10] VITALS: RESP 18; TEMP 98.2; BMI 40.4
[2025-06-11] MEDS ORDERED: ONDANSETRON 4 MG/2 ML VIAL ONE (20:20)
[2025-06-11] MEDS ORDERED: ACETAMINOPHEN INJECTION 100 ML ONE (20:20)
[2025-06-11] MEDS ORDERED: KETOROLAC TROMETHAMINE 15 MG/ML VIAL ONE (20:21)
[2025-06-11 20:26] LABS: ABSOLUTE IMMATURE GRANULOCYTES 0.05 x10^3/uL (0.0-0.031); BASOPHILS # 0.05 x10^3/uL (0.01-0.08); EOSINOPHIL % 0.7 % (0.7-5.8); EOSINOPHILS # 0.09 x10^3/uL (0.04-0.36); MCHC 33.6 g/dl (32.2-35.5); MEAN CELL VOLUME 89.9 fl (79.4-94.8); MEAN PLT VOLUME 9.3 fl (9.4-12.3); MONOCYTE # 0.58 x10^3/uL (0.24-0.86); MONOCYTE % 4.8 % (4.7-12.5); RDW 12.1 % (12.4-16.4)
[2025-06-11] MEDS: SODIUM CHLORIDE 0.9% 500 ML INFUS.BAG IV ONE (20:31)
[2025-06-11] MEDS: ONDANSETRON 4 MG/2 ML VIAL IVPB ONE (20:31)
[2025-06-11] MEDS: KETOROLAC TROMETHAMINE 30 MG/1 ML VIAL IVPUSH ONE (20:31)
[2025-06-11 20:37] LABS: EPI CELLS 27 /uL (0-25.1); HYALINE CASTS 1 /uL (0-3.1); URINE APPEARANCE CLOUDY; URINE BACTERIA 246 /uL (0-1359); URINE BILIRUBIN NEGATIVE (NEGATIVE); URINE COLOR YELLOW; URINE GLUCOSE (UA) TRACE (NEGATIVE); URINE KETONE 1+ (NEGATIVE); URINE LEUK ESTERASE NEGATIVE (NEGATIVE); URINE NITRITE NEGATIVE (NEGATIVE); URINE PROTEIN TRACE (NEGATIVE); URINE RBC 136 /uL (0-23.9); URINE UROBILINOGEN 0.2 mg/dL (0.2-1.0); URINE WBC 5 /uL (0-25.8)
[2025-06-11 20:50] LABS: GLUCOSE,RANDOM 182.0 mg/dL (74-106)
[2025-06-11 20:51] LABS: TOT PROT 7.6 g/dl (6.4-8.2)
[2025-06-11 20:52] LABS: CO2 25.0 mmol/L (21-32)
[2025-06-11 20:53] LABS: ALK PHOS 96.0 U/L (40-150)
[2025-06-11 20:56] LABS: CREATININE 1.03 mg/dL (0.55-1.3); SGOT/AST 31.0 U/L (5-34); SGPT/ALT 50.0 U/L (0-55)
[2025-06-11 21:10] LABS: HCV DIAGNOSTIC IN-HOUSE W/RFLX NON-REACTIVE (NONREACTIVE)
[2025-06-11 21:11] LABS: HIV INTERPRETATION NEGATIVE (NEGATIVE)
[2025-06-11 21:37] LABS: EPI CELLS >36 /uL (0-25.1); HYALINE CASTS 1 /uL (0-3.1); URINE APPEARANCE TURBID; URINE BACTERIA 378 /uL (0-1359); URINE BILIRUBIN NEGATIVE (NEGATIVE); URINE COLOR YELLOW; URINE GLUCOSE (UA) NEGATIVE (NEGATIVE); URINE KETONE TRACE (NEGATIVE); URINE LEUK ESTERASE NEGATIVE (NEGATIVE); URINE NITRITE NEGATIVE (NEGATIVE); URINE PROTEIN NEGATIVE (NEGATIVE); URINE RBC 585 /uL (0-23.9); URINE UROBILINOGEN 0.2 mg/dL (0.2-1.0); URINE WBC 14 /uL (0-25.8)
[2025-06-12 00:02] VITALS: BP 122/76; PULSE 90
== END 2025-06-12 00:01 | disposition home or self-care (01) ==
LOC: JER 17:34
PROC: 3E0333Z Introduction of Anti-inflammatory into Peripheral Vein, Percutaneous Approach (ICD-10-PCS; principal; 2025-06-11)
PROC: 3E033GC Introduction of Other Therapeutic Substance into Peripheral Vein, Percutaneous Approach (ICD-10-PCS; 2025-06-11)
DX: R10.30 Lower abdominal pain, unspecified (principal); M54.50 Low back pain, unspecified; R11.2 Nausea with vomiting, unspecified
CPT/HCPCS: 36415; 74177-TC; 80053; 81003; 83690; 85025; 86803; 87086; 87389; 99285-25